=== PATIENT | male | born 1970 | race Caucasian/White ===

== ENCOUNTER → 2017-02-27 | Outpatient (CLI) | payer OTHER ==
[~2017-02-27] MED LIST: CHLO25 PO; Cleocin HCl300 MG PO; HYDR1TAB94 PO; IBUP800 PO; METO50ER PO; Omeprazole20 M1
== END ==
LOC: LAB 18:03
DX: L02.416 Cutaneous abscess of left lower limb (principal)

== ENCOUNTER 2017-04-17 13:47 | Day surgery (SDC) | payer OTHER ==
[~2017-04-17 13:47] MED LIST changes: -Cleocin HCl300 MG PO; -METO50ER PO
[2017-07-08] MEDS ORDERED: METO50ER PO (22:27)
[2017-07-08] MEDS ORDERED: Cleocin HCl300 MG PO (23:26)
== END 2017-04-17 22:39 | disposition home or self-care (01) ==
LOC: WOUND 13:47
PROC: 0HBLXZZ Excision of Left Lower Leg Skin, External Approach (ICD-10-PCS; principal; 2017-04-17)
DX: L89.899 Pressure ulcer of other site, unspecified stage (principal); Z89.512 Acquired absence of left leg below knee; F17.210 Nicotine dependence, cigarettes, uncomplicated; Z22.322 Carrier or suspected carrier of Methicillin resistant Staphylococcus aureus; F10.188 Alcohol abuse with other alcohol-induced disorder; F12.10 Cannabis abuse, uncomplicated; L02.416 Cutaneous abscess of left lower limb
CPT/HCPCS: 87070; 87075; 87205; G0463

== ENCOUNTER → 2017-10-23 | Outpatient (CLI) | payer OTHER ==
[~2017-10-23] MED LIST changes: +Cleocin HCl300 MG PO; +METO50ER PO
[2017-10-23 12:50] LABS: Adenovirus F 40/41 Not Detected (NOT DETECT); Astrovirus Not Detected (NOT DETECT); Campylobacter Sp Not Detected (NOT DETECT); Cryptosporidium Not Detected (NOT DETECT); Cyclospora Cayetanensis Not Detected (NOT DETECT); E. Coli O157 Not Detected (NOT DETECT); Entamoeba Histolytica Not Detected (NOT DETECT); Enteroaggregative E. coli-EAEC Not Detected (NOT DETECT); Enteropathogenic E. coli-EPEC Not Detected (NOT DETECT); Enterotoxigenic E. coli-ETEC Not Detected (NOT DETECT); Giardia Lamblia Not Detected (NOT DETECT); Norovirus GI/GII Not Detected (NOT DETECT); Plesiomonas Shigelloides Not Detected (NOT DETECT); Rotavirus A Not Detected (NOT DETECT); Salmonella Sp Not Detected (NOT DETECT); Sapovirus Not Detected (NOT DETECT); Shiga Toxin-prod E. coli-STEC Not Detected (NOT DETECT); Shigella/Enteroin E. coli-EIEC Not Detected (NOT DETECT); Vibrio Cholerae Not Detected (NOT DETECT); Vibrio Sp Not Detected (NOT DETECT); Yersinia Enterocolitica Not Detected (NOT DETECT)
== END | disposition home or self-care (01) ==
LOC: LAB EV 09:30 → LAB FUT 10-16 12:45 → EDSTATUS 10-16 12:45
PROVIDERS: Student in an Organized Health Care Education/Training Program
DX: R19.7 Diarrhea, unspecified (principal)
CPT/HCPCS: 87507

== ENCOUNTER 2017-11-05 11:12 | Day surgery (SDC) | payer OTHER | END 2017-11-05 14:33 | disposition home or self-care (01) | LOC: ORSCMMR 11:12 → ORD 13:00 → ORSCMMR 14:33 | PROVIDERS: Student in an Organized Health Care Education/Training Program | PROC: 0DB58ZX Excision of Esophagus, Via Natural or Artificial Opening Endoscopic, Diagnostic (ICD-10-PCS; principal; 2017-11-05 13:00) | PROC: 0DB68ZX Excision of Stomach, Via Natural or Artificial Opening Endoscopic, Diagnostic (ICD-10-PCS; principal; 2017-11-05 13:00) | PROC: 0DBE8ZX Excision of Large Intestine, Via Natural or Artificial Opening Endoscopic, Diagnostic (ICD-10-PCS; principal; 2017-11-05 13:00) | PROC: 0DB98ZX Excision of Duodenum, Via Natural or Artificial Opening Endoscopic, Diagnostic (ICD-10-PCS; principal; 2017-11-05 13:00) | DX: R19.7 Diarrhea, unspecified (principal); K92.1 Melena; D12.8 Benign neoplasm of rectum; K21.9 Gastro-esophageal reflux disease without esophagitis; Z80.0 Family history of malignant neoplasm of digestive organs; K64.4 Residual hemorrhoidal skin tags; K64.8 Other hemorrhoids; K44.9 Diaphragmatic hernia without obstruction or gangrene; K29.70 Gastritis, unspecified, without bleeding; I10 Essential (primary) hypertension; Z79.899 Other long term (current) drug therapy | CPT/HCPCS: 88305; 88342; J2250; J7120 ==

== ENCOUNTER 2018-12-23 13:46 | Day surgery (SDC) | payer OTHER ==
[~2018-12-23] VITALS: Ht 175.3 cm; Wt 79.5 kg
[2018-12-23] MEDS ORDERED: Excedrin Extra1 EACH (15:13)
== END 2018-12-23 17:25 | disposition home or self-care (01) ==
LOC: ORSCSDS 13:46
PROVIDERS: Student in an Organized Health Care Education/Training Program
PROC: 0DJD8ZZ Inspection of Lower Intestinal Tract, Via Natural or Artificial Opening Endoscopic (ICD-10-PCS; principal; 2018-12-23 15:00)
DX: K62.5 Hemorrhage of anus and rectum (principal); K64.9 Unspecified hemorrhoids; Z86.010 Personal history of colon polyps; I10 Essential (primary) hypertension; K21.9 Gastro-esophageal reflux disease without esophagitis; F17.210 Nicotine dependence, cigarettes, uncomplicated; Z79.899 Other long term (current) drug therapy
CPT/HCPCS: J2250; J2704; J7120

== ENCOUNTER → 2021-05-05 | Outpatient (CLI) | payer OTHER ==
[~2021-05-05] MED LIST changes: +Excedrin Extra1 EACH
== END | disposition home or self-care (01) ==
LOC: LAB SHORT 14:56
DX: L97.809 Non-pressure chronic ulcer of other part of unspecified lower leg with unspecified severity (principal)
CPT/HCPCS: 87070; 87075; 87077; 87147; 87186; 87205

== ENCOUNTER 2021-06-15 02:34 | Day surgery (SDC) | payer OTHER | END 2021-06-15 23:37 | disposition home or self-care (01) | LOC: WOUND 02:34 | DX: L89.893 Pressure ulcer of other site, stage 3 (principal); Z89.512 Acquired absence of left leg below knee; F17.210 Nicotine dependence, cigarettes, uncomplicated; K21.9 Gastro-esophageal reflux disease without esophagitis; Z88.5 Allergy status to narcotic agent; Z88.1 Allergy status to other antibiotic agents; Z88.0 Allergy status to penicillin | CPT/HCPCS: 99406; A9270; G0463 ==

== ENCOUNTER 2021-07-05 02:01 | Day surgery (SDC) | payer OTHER | END 2021-07-05 23:12 | disposition home or self-care (01) | LOC: WOUND 02:01 | DX: L89.893 Pressure ulcer of other site, stage 3 (principal); Z89.512 Acquired absence of left leg below knee; Z86.14 Personal history of Methicillin resistant Staphylococcus aureus infection | CPT/HCPCS: 99406; A9270; G0463 ==

== ENCOUNTER 2021-07-18 00:49 | Day surgery (SDC) | payer OTHER | END 2021-07-18 23:38 | disposition home or self-care (01) | LOC: WOUND 00:49 | DX: L89.893 Pressure ulcer of other site, stage 3 (principal); F17.210 Nicotine dependence, cigarettes, uncomplicated; Z89.512 Acquired absence of left leg below knee | CPT/HCPCS: 99406; G0463 ==

== ENCOUNTER 2021-09-18 10:46 | Emergency (ER) | payer OTHER ==
[~2021-09-18] VITALS: Ht 175.3 cm; Wt 79.4 kg
[2021-09-18 11:54] LABS: BASOPHILS ABSOLUTE AUTO 0.09 K/mm3 (0.00-0.23); BASOPHILS PERCENT AUTO 1 % (0-2); EOSINOPHILS ABSOLUTE AUTO 0.13 K/mm3 (0.00-0.68); EOSINOPHILS PERCENT AUTO 1 % (0-6); Hematocrit 40.1 % (37.0-53.0); Hemoglobin 13.6 g/dL (13.5-17.5); IMMATURE GRAN ABSOLUTE AUTO 0.04 K/mm3 (0.00-0.10); IMMATURE GRAN PERCENT AUTO 0 % (0-1); LYMPHOCYTES PERCENT AUTO 18 % (21-46); MONOCYTES ABSOLUTE AUTO 1.15 K/mm3 (0.16-1.47); MONOCYTES PERCENT AUTO 12 % (4-13); Mean Corpuscular HGB 29.7 pg (26.0-34.0); Mean Corpuscular HGB Conc 33.9 g/dL (31.5-36.5); Mean Corpuscular Volume 88 fL (80-100); Mean Platelet Volume 8.7 fL (9.1-12.4); NEUTROPHILS PERCENT AUTO 68 % (41-73); Platelet Count 252 K/mm3 (150-400); RDW Coefficient Variation 13.4 % (11.7-14.2); RDW Standard Deviation 43.2 fL (35.1-46.3); Red Blood Cell Count 4.58 M/mm3 (4.30-5.90); White Blood Cell Count 9.91 K/mm3 (4.00-11.30)
[2021-09-18 12:05] LABS: Albumin/Globulin Ratio 1.1 (0.8-1.8); Bilirubin, Total 0.5 mg/dL (0.1-1.0); Bun/Creatinine Ratio 12.3 (12.0-20.0); Calcium, Blood 8.9 mg/dL (8.5-10.1); Creatinine, Blood 0.98 mg/dL (0.60-1.20); Globulin, Blood 3.8 g/dL (2.2-4.0); Potassium, Blood 4.3 mmol/L (3.5-5.5); Total Protein, Blood 7.8 g/dL (6.4-8.2)
[2021-09-18] MEDS ORDERED: Aspir 8181 MG PO (14:06)
[2021-09-18] MEDS ORDERED: ATOR20 PO (14:06)
[2021-09-18] MEDS ORDERED: IRBE150 (14:07)
[2021-09-18] MEDS ORDERED: HYDCHL25 (14:07)
[2021-09-18] MEDS ORDERED: Inderal40 MG PO (14:08)
[2021-09-18] MEDS ORDERED: OMEP20ER PO (14:08)
[2021-09-18] MEDS ORDERED: Pepcid20 MG PO (14:15)
== END 2021-09-18 14:30 | disposition home or self-care (01) ==
LOC: ER 10:46
PROVIDERS: Physician Assistant
DX: K21.00 Gastro-esophageal reflux disease with esophagitis, without bleeding (principal); D17.0 Benign lipomatous neoplasm of skin and subcutaneous tissue of head, face and neck; F17.210 Nicotine dependence, cigarettes, uncomplicated; Z79.899 Other long term (current) drug therapy; Z79.82 Long term (current) use of aspirin; Z88.0 Allergy status to penicillin; Z88.1 Allergy status to other antibiotic agents; Z88.5 Allergy status to narcotic agent
CPT/HCPCS: 70491; 80053; 85025; Q9967

== ENCOUNTER 2022-05-18 07:48 | Day surgery (SDC) | payer OTHER ==
[~2022-05-18] VITALS: Ht 175.3 cm; Wt 81.3 kg
[~2022-05-18 07:48] MED LIST changes: +ATOR20 PO; +Aspir 8181 MG PO; +HYDCHL25; +IRBE150; +Inderal40 MG PO; +OMEP20ER PO; +Pepcid20 MG PO
[2022-05-18] MEDS ORDERED: Norco 5-325 Ta1 EACH (08:06)
[2022-05-18] MEDS ORDERED: NITR.4SL (08:06)
[2022-05-18] MEDS ORDERED: Ventolin5 MG/1 ML (08:26)
[2022-05-18 09:29] VITALS: BP 120/84
== END 2022-05-18 09:30 | disposition home or self-care (01) ==
LOC: ORSCSDS 07:48
PROVIDERS: Student in an Organized Health Care Education/Training Program
PROC: 0DB58ZX Excision of Esophagus, Via Natural or Artificial Opening Endoscopic, Diagnostic (ICD-10-PCS; principal; 2022-05-18 09:00)
PROC: 0DB98ZX Excision of Duodenum, Via Natural or Artificial Opening Endoscopic, Diagnostic (ICD-10-PCS; principal; 2022-05-18 09:00)
PROC: 0DB68ZX Excision of Stomach, Via Natural or Artificial Opening Endoscopic, Diagnostic (ICD-10-PCS; principal; 2022-05-18 09:00)
DX: R13.10 Dysphagia, unspecified (principal); R10.9 Unspecified abdominal pain; K22.70 Barrett's esophagus without dysplasia; K21.9 Gastro-esophageal reflux disease without esophagitis; K44.9 Diaphragmatic hernia without obstruction or gangrene; K29.70 Gastritis, unspecified, without bleeding; K31.9 Disease of stomach and duodenum, unspecified; E78.5 Hyperlipidemia, unspecified; I10 Essential (primary) hypertension; F43.10 Post-traumatic stress disorder, unspecified; J44.9 Chronic obstructive pulmonary disease, unspecified; F32.A Depression, unspecified; F17.210 Nicotine dependence, cigarettes, uncomplicated; Z79.82 Long term (current) use of aspirin; Z79.899 Other long term (current) drug therapy
CPT/HCPCS: 88305; 88342; J2001; J2250; J2704; J7120

== ENCOUNTER 2022-10-11 07:16 | Day surgery (SDC) | payer OTHER ==
[~2022-10-11] VITALS: Ht 172.7 cm; Wt 82.4 kg
[~2022-10-11 07:16] MED LIST changes: +NITR.4SL; +Norco 5-325 Ta1 EACH; +Ventolin5 MG/1 ML
[2022-10-11 09:19] VITALS: BP 121/86
== END 2022-10-11 09:21 | disposition home or self-care (01) ==
LOC: ORSCSDS 07:16
PROVIDERS: Internal Medicine Gastroenterology
PROC: 0DJD8ZZ Inspection of Lower Intestinal Tract, Via Natural or Artificial Opening Endoscopic (ICD-10-PCS; principal; 2022-10-11 08:30)
DX: Z12.11 Encounter for screening for malignant neoplasm of colon (principal); Z86.010 Personal history of colon polyps; K64.4 Residual hemorrhoidal skin tags; K57.30 Diverticulosis of large intestine without perforation or abscess without bleeding; I10 Essential (primary) hypertension; J44.9 Chronic obstructive pulmonary disease, unspecified; E78.5 Hyperlipidemia, unspecified; F43.10 Post-traumatic stress disorder, unspecified; F32.A Depression, unspecified; F17.210 Nicotine dependence, cigarettes, uncomplicated; Z79.82 Long term (current) use of aspirin; Z79.899 Other long term (current) drug therapy
CPT/HCPCS: J2250; J2704; J7120